=== PATIENT | female | born 1985 | race African-American/Black ===

== ENCOUNTER 2023-08-07 22:17 | Emergency (ER) | payer OTHER, SELFPAY ==
[2023-08-07 22:21] VITALS: BP 161/89
[2023-08-07 22:36] VITALS: BP 130/84
[2023-08-07 22:46] VITALS: BMI 39.0
[2023-08-07 22:53] LABS: Hemoglobin 10.1 g/dL (12.0-16.0); Mean Corp Hgb Conc. 32.6 g/dL (33.0-37.0); Mean Corpuscular Hgb 22.1 pg (27.0-31.0); Mean Corpuscular Volume 67.8 fL (81.0-99.0); Mean Platelet Volume 8.5 fL (7.4-10.4); Nucleated Red Blood Cells % 0 %; Platelet Count 303 10^3/uL (130-400); Red Blood Cell Count 4.57 10^6/uL (4.20-5.40); Red Cell Dist. Width 18.3 % (11.5-14.5); White Blood Cell Count 6.1 10^3/uL (4.8-10.8)
--- NOTE | 2023-08-07 22:53 | ED.GENMED ---
History of Present Illness
General
Chief Complaint: Back Pain
Source: patient
Exam Limitations: none
Time Seen by Provider: 08/07/23 22:31
Travel History
Have you had any contact with someone who has COVID-19?: No
Do you have any symptoms of coronavirus? Fever > 100 degrees, chills, cough, shortness of breath, sore throat, loss of taste or smell, muscle aches, or headache?: No
History of Present Illness
History of Present Illness:
This is a 38 year old female that comes in with c/o back pain. States that she started with worsening upper back pain. States that it is circling around to the front and is under her bra. States that she is unable to take a deep breath as this
increases her pain. State that she took Ibuprofen and this did not help. Her last dose was 800mg at 8:45pm. States that she just flow back from [place] on Monday night. State that she was also nauseated and has a headache. Denies any fever,
chills, chest pain, SOB, abd pain, vomiting, diarrhea, dizziness, urinary burning.
Past History
Past History
ED Past Medical History: Asthma, HTN and Other (ANEMIA, Per-eclampsia, )
ED Past Surgical History: and Other (Retina Surgery, Thyroid surgery, )
Social History
Tobacco: Non-smoker
Alcohol: Occasional
Drug: None
Personal:
Living: with family
Family History
Family History: Negative Diabetes, Hypertension or CAD
Review of Systems
Review of Systems
All Other Systems: ROS reviewed and negative except as documented in HPI and ROS
Constitutional: Reports no symptoms; Denies fever or chills
EENT: Reports no symptoms
Respiratory: Reports trouble breathing (Pain with deep breathing); Denies cough
Cardiac: Reports chest pain (Under the ribs)
ABD/GI: Reports nausea; Denies abdominal pain, vomiting or diarrhea
: Reports no symptoms; Denies dysuria, frequency or urgency
Musculoskeletal: Reports no symptoms
Skin: Reports no symptoms
Neurological: Reports headache; Denies dizzy
Psychiatric: Reports no symptoms
Phy Exam
General Physical Exam
General Presentation: mild distress
General age: appears stated age
General Skin: warm and dry
General Habitus: normal
General Mental: alert
General Hydration: appears well hydrated
ENT Exam
ENT Exam: TM's normal, pharynx normal and neck supple
Eye Exam
Eye Exam: EOMI
Cardiovascular Exam
Cardiovascular Exam: regular rate/rhythm, no edema, no murmur and normal peripheral pulses
Pulmonary Exam
Pulmonary Exam: lungs clear, no respiratory distress, no rales, chest non tender, no crackles, no rhonchi, no cough and other (Faint upper lung exp wheezing noted)
Gastrointestinal Exam
Gastrointestinal Exam: normal bowel sounds, non tender, soft, no organomegaly, no pulsatile mass and non distended
Musculoskeletal Exam
Musculoskeletal Exam: full ROM, no edema and other (Negative for any spinal tenderness with palpation, Has some discomfort with movement. )
Skin Exam
Skin Exam: normal color, warm/dry, no rash and no petechia
Psychiatric Exam
Psychiatric Exam: normal mood/affect
Course
Orders/Labs/Results
Orders:
Orders
08/07/23 22:30
EKG [Electrocardiogram (*1)] Urgent
Reason for Study: Tachycardia
EKG- Treatment ONCE
08/07/23 22:42
Complete Blood Count/With Diff Urgent
Comprehensive Metabolic Panel Urgent
D-Dimer Urgent
HCG, Serum Qualitative Screen Urgent
Comment: ADD ON
Manual Differential Urgent
08/07/23 22:51
HYDROmorphone [Dilaudid] 0.5 mg IV NOW STA
Metoclopramide [Reglan] 10 mg IV NOW STA
08/07/23 22:52
0.9% Sodium Chloride 500 ml [Nss] 500 ml IV BOLUS
08/07/23 22:57
Pantoprazole [Protonix IV] 40 mg IV NOW STA
08/07/23 22:58
Ipratropium/Albuterol Sulfate [Duoneb] 3 ml INH R NOW ONE
08/07/23 23:02
Troponin I Urgent
08/07/23 23:58
Add On- LAB Urgent
Tests Added?: HCG
08/08/23 01:00
CT Chest Pe Study Urgent
Reason For Exam: dIFFIUCULTY BREATHING. mID BACK PAIN, d-DIMER ELEV
Abnormal Lab Results
08/07/23
22:42
Hgb 10.1 L g/dL
(12.0-16.0)
Hct 31.0 L %
(37.0-47.0)
MCV 67.8 L fL
(81.0-99.0)
MCH 22.1 L pg
(27.0-31.0)
MCHC 32.6 L g/dL
(33.0-37.0)
RDW 18.3 H %
(11.5-14.5)
Band Neutrophils 9 H %
(0-3)
D-Dimer 0.58 H ug/mlFEU
(0.00-0.50)
08/07/23 22:42
08/07/23 22:42
H/H low, Anemia, D-dimer slightly elevated. Troponin <0.012, HCG negative.
Vital Signs
Initial and Last Documented VS:
Initial Vital Signs
Temp Pulse Resp BP Pulse Ox
98.1 F 73 20 161/89 99
08/07/23 22:21 08/07/23 22:21 08/07/23 22:21 08/07/23 22:21 08/07/23 22:21
Last Documented Vital Signs
Temp Pulse Resp BP Pulse Ox
98.1 F 63 11 109/74 96
08/07/23 22:21 08/08/23 00:45 08/08/23 00:45 08/08/23 00:00 08/08/23 00:45
MDM/Problems Addressed
Differential Diagnosis Includes:
Asthma exacerbation. PE, Aortic dissection
MDM/Problems Addressed:
This is a 38 year old female that comes in with c/o pain in the mid back that wraps around to under her bra. States that she has discomfort with deep breathing. Patient just returned from [place] on Monday night.
Will check labs. Give Duo neb and medicate for pain. If D-dimer positive will get CT of the chest.
Patient states that she is feeling better after the breathing treatment and the pain medication. Will get CT and then talk with patient.
Back into see patient. Explained that her blood work shows some anemia. Her CT of the chest is negative for any PE or other consolidation. Patient felt better after the neb treatment. Will give patient a prescription for albuteral inhaler. Patient
can use Ibuprofen or Tylenol for pain. Patient to follow up with the family doctor. Return with any concerns.
Chronic conditions affecting care: Asthma
Acute Exacerbation and/or Progression of Chronic Illness: Asthma
*Radiology
Radiology exam reviewed: radiology read reviewed (CT night hawk-Good bolus, Mild motion. NO evidence of pulmonary embolism. No evidence of aortic dissection or aneurysm. No focal airspace consolidation. No pleural effusion or pneumothorax.
Splenomegaly. )
*Pulse Oximetry
Patient hypoxic: no
*EKG
Interpreted by ED Provider?: Yes
Heart Rate: 71
Rate: normal
Rhythm: sinus
Currie: normal axis
Interval: long QT
QRS Pattern: low voltage
Ischemia: T-wave inversion (II, V4, V5, V6, Checked by Dr. Ambriz)
*Correctional Lieutenant Interpretation
Rate: normal
Heart Rate: 72
*Critical Care Note
Total Time (30-74mins, 75-104mins- exclusive of procedures): Not Applicable
ED Attending Note
-
Portions of this chart may have been created with voice recognition software.� Occasional wrong word or��sound alike� substitutions may have occurred due to the inherent limitations of voice recognition software.
Discharge Plan
Departure
Patient Disposition: Home (Routine Discharge)
Date of Disposition: 08/08/23
Time of Disposition: 02:23
Patient with high blood pressure during this ER visit?: No
Condition: Good
Covid-19: Not Applicable
Discharge Problem:
Back pain, Breathing difficulty
Instructions: Upper Back Pain (DC), Shortness of Breath, Adult ED
Prescriptions:
New
albuterol sulfate 90 mcg/actuation HFA aerosol inhaler
2 puff inhalation Q4H PRN (Reason: shortness of breath or wheezing) Qty: 6.7 0RF
No Action
albuterol sulfate 90 MCG/PUFF HFA aerosol inhaler
2 puff inhalation R Q4HPRN PRN (Reason: asthma)
prednisone 20 MG tablet
40 mg PO DAILY Qty: 0 0RF
prednisone 20 MG tablet
40 mg PO DAILY Qty: 10 0RF
Referrals:
Mari Logan DO [Family Provider] - Call in 1-3 days for appt
Activity Restrictions/Additional Instructions:
As discussed, your blood work shows that you are a little anemic. Your CT of the chest is negative for any Pulmonary embolism or other consolidation. Your ECG was normal. This is most likely musculoskeletal pain and your Asthma. You have had a
prescription for albuterol inhaler sent to your Pharmacy. You may use 2 puffs every 4 hours as needed for chest tightness. You may use Tylenol and Ibuprofen for the back pain. Heat or ice to help with pain. Follow up with the family doctor for
recheck. IF YOU HAVE INCREASED SHORTNESS OF BREATH, FEVER, OR YOU HAVE ANY OTHER CONCERNS PLEASE RETURN TO THE EMERGENCY ROOM.
Interventions
Interventions:
*Risk Screen - Suicide Last Done: 08/07/23 22:21
*General Assessment Last Done: 08/07/23 22:21
*Neglect/Abuse Screening Last Done: 08/07/23 22:21
*ED COVID-19 Vaccine History Last Done: 08/07/23 22:42
ED-Musculoskeletal Assessment Last Done: 08/07/23 22:44
Discharge Date and Time
Print Language: MALAYSIAN
[2023-08-07] MEDS: DILAUDID 0.5 MG IV (22:57)
[2023-08-07] MEDS: REGLAN 10 MG IV (22:57)
[2023-08-07] MEDS: NSS 500 IV (22:57)
[2023-08-07 23:00] VITALS: BP 133/86
[2023-08-07] MEDS: PROTONIX IV 40 MG IV (23:04)
[2023-08-07 23:09] LABS: D-Dimer 0.58 ug/mlFEU (0.00-0.50)
[2023-08-07 23:11] LABS: ALT (SGPT) 21 U/L (0-35); AST (SGOT) 36 U/L (14-36); Albumin 4.1 g/dl (3.5-5.0); Alkaline Phosphatase 90 U/L (38-126); Blood Urea Nitrogen 16 mg/dl (7-17); Calcium 9.6 mg/dl (8.4-10.2); Carbon Dioxide 24 mmol/L (22-30); Chloride 105 mmol/L (98-107); Estimated Creatinine Clearance 112 ml/min; Glucose 97 mg/dl (70-99); Potassium 3.8 mmol/L (3.5-5.1); Sodium 137 mmol/L (135-145); Total Bilirubin 0.5 mg/dl (0.2-1.3); Total Protein 7.3 g/dl (6.3-8.2); eGFR > 60.00
[2023-08-07] MEDS: DUONEB 3 ML INH (23:13)
[2023-08-07 23:34] LABS: Absolute Neutrophils -Man Diff 3.6 10^3/uL (1.4-6.5); Band Neutrophils 9 % (0-3); Segmented Neutrophils 51 % (42-75)
[2023-08-07 23:35] LABS: Atypical Lymphocytes 12 %; Eosinophils 3 % (0-6); Lymphocytes 21 % (20-51); Monocytes 4 % (2-9); Normal RBC Morphology Yes; Platelets Checked Yes; Total Cells Counted 100
[2023-08-07 23:42] LABS: Troponin I < 0.012 ng/ml
[2023-08-08] VITALS: BP 109/74
[2023-08-08 00:37] LABS: HCG, Serum Qualitative Screen Negative
[2023-08-08 02:30] VITALS: BP 116/82
== END 2023-08-08 02:36 | disposition home or self-care (01) ==
LOC: EMR 22:17
PROVIDERS: Clinical Nurse Specialist Family Health; EMERGENCY PHYSICIAN Emergency Medicine; FAMILY PHYSICIAN Internal Medicine
DX: M54.6 Pain in thoracic spine (principal); R06.02 Shortness of breath; J45.909 Unspecified asthma, uncomplicated; I10 Essential (primary) hypertension; D64.9 Anemia, unspecified; Z87.59 Personal history of other complications of pregnancy, childbirth and the puerperium
CPT/HCPCS: 99284; 94640; 96374; 96375; 96361; 71275; 80053; 84484; 84703; 85025; 85379; 93005; Q9967